=== PATIENT | male | born 1980 | race Hispanic/Latino ===

== ENCOUNTER 2017-03-08 19:41 | Emergency (ER) | payer MEDICARE, MEDICAID ==
[2017-03-08] MEDS ORDERED: Ondansetron ODT 4 MG TAB ONE (19:53)
== END 2017-03-08 20:08 | disposition home or self-care (01) ==
LOC: SCSER 19:41
DX: R11.2 Nausea with vomiting, unspecified (principal); E78.5 Hyperlipidemia, unspecified; I10 Essential (primary) hypertension; F41.9 Anxiety disorder, unspecified
CPT/HCPCS: 36416; 93005; Q0162

== ENCOUNTER 2017-05-24 15:14 | Emergency (ER) | payer MEDICARE, MEDICAID ==
[2017-05-24] MEDS ORDERED: Ibuprofen 800 MG TAB ONE (15:48)
--- NOTE | 2017-05-24 15:54 | RAD ---
PA AND LATERAL CHEST: Date: 05-24-17 History: Cough, subjective fever and sore throat. Patient also complains of chest pain and headache. Comparison: 06-11-15 FINDINGS: Cardiac silhouette and pulmonary vasculature are within normal limits. A linear density overlies the right hilum which may be related to either minimal scarring or atelectasis. Lungs are otherwise clear . There has been no other interval change from the prior exam. IMPRESSION: No acute cardiopulmonary process. POS: JOSE ELIASH
[2017-05-24] MEDS ORDERED: Acetaminophen 500 MG TAB ONE (17:26)
[2017-05-24] MEDS ORDERED: Lorazepam 2 MG/ML VIAL ONE (18:00)
[2017-05-24 18:27] LABS: #Basophils 0.1 thou/uL (0.0-0.2); #Lymphocytes 0.7 thou/uL (1.20-3.40); #Monocytes 0.6 thou/uL (0.11-0.59); #Neutrophils 7.4 thou/uL (1.40-6.50); %Basophils 0.7 % (0.0-1.0); %Eosinophils 0.2 % (0.0-10.0); %Lymphocytes 7.7 % (21.0-51.0); %Monocytes 7.2 % (0.0-10.0); %Neutrophils 84.3 % (42.0-75.0); Hemoglobin 12.8 g/dL (14.0-18.0); Mean Corpuscular HGB CONC 33.7 g/dL (32.0-36.0); Mean Corpuscular Hemoglobin 30.1 pg (27.0-31.0); Mean Corpuscular Volume 89.4 fl (80.0-94.0); Mean Platelet Volume 6.8 fL (7.4-10.4); Platelet Count 252 thou/uL (130-400); RBC Distribution Width 11.5 % (11.5-14.5); Red Blood Cell (RBC) Count 4.25 mill/uL (4.70-6.10); White Blood Cell (WBC) Count 8.8 thou/uL (4.8-10.8)
[2017-05-24 18:37] LABS: Lactic Acid 0.9 mmol/L (0.5-2.2)
[2017-05-24 18:46] LABS: CKMB 0.2 ng/mL (0-6.6); Troponin I Less than 0.010 ng/mL (< 0.028)
--- NOTE | 2017-06-29 17:33 | EKG ---
Test Reason : Blood Pressure : / mmHG Vent. Rate : 122 BPM Atrial Rate : 122 BPM P-R Int : 000 ms QRS Dur : 082 ms QT Int : 406 ms P-R-T Axes : 000 002 012 degrees QTc Int : 578 ms Sinus tachycardia Nonspecific T wave abnormality Abnormal ECG Confirmed by ROMY JOSUE ([id number]), assignment editor CONSTANCE SUAREZ ([id number]) on 06/29/2017 5:33:02 PM Referred By: Confirmed By:ROMY JOSUE
== END 2017-05-24 20:20 | disposition home or self-care (01) ==
LOC: SCSER 15:14
DX: J11.1 Influenza due to unidentified influenza virus with other respiratory manifestations (principal); R00.0 Tachycardia, unspecified; E78.5 Hyperlipidemia, unspecified; F41.9 Anxiety disorder, unspecified
CPT/HCPCS: 36415; 71046; 82553; 83605; 84443; 84484; 85025; 87804; 93005; 96361; 96374; 96376; J2060; J7620